=== PATIENT | male | born 1990 | race Caucasian/White ===

== ENCOUNTER 2018-07-04 08:34 | Emergency (ER) | payer OTHER ==
[~2018-07-04] VITALS: Ht 180.3 cm; Wt 83.9 kg
--- NOTE | 2018-07-04 09:53 | ER.PDOC ---
General Chief Complaint: Requesting Medical Care Stated Complaint: BACK INJURY Time seen by MD: 09:46 Source: patient Exam Limitations: no limitations History of Present Illness Initial Comments 28 Y/O MALE WITH HX BENT OVER TO [employer] A TRAILER X 6 DAYS AGO AND FELT PULL IN LOW BACK, NOW WITH CONTINUED BACK PAIN, NO LOSS OF BOWEL OR BLADDER CONTROL, HAS BEEN USING HEAT. SAME PAST BACK STRAIN. Occurred: last week Where: work Severity: moderate Injuries/Pain Location: back Loss of Consciousness: No Loss of Consciousness Modifying Factors: improves with immobilization, improves with rest Associated Symptoms: denies symptoms Past Medical History Medical History: no pertinent history Family History Significant Family History: no pertinent family hx Social History Alcohol Use: occassionally Drug Use: none Reviewed Nursing Reviewed: Vital Signs, Abn. Noted, Nursing Assessment Review of Systems Constitutional: see HPI Eyes: no symptoms reported Ears, Nose, Mouth, Throat: no symptoms reported Respiratory: no symptoms reported Cardiovascular: no symptoms reported Gastrointestinal: no symptoms reported Genitourinary: no symptoms reported Musculoskeletal: back pain Skin: no symptoms reported Psychiatric/Neurological: no symptoms reported All Other Systems: Reviewed and Negative Physical Exam General Appearance: Mild Distress Head: No Evidence of Injury Ears, Nose, Mouth, Throat: Hearing Grossly Normal Back: Decreased Range Of Motion, Muscle Spasm, Vertebral Tenderness Extremities: No Evidence of Injury, Normal Range of Motion, Non-Tender, No Pedal Edema 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 NML as Tested, No Motor/Sensory Deficits, Alert, Normal Mood/Affect, Oriented x 3 Skin: Normal Color, Warm/Dry Faustina Coma Score Best Eye Response: (4) Open Spontaneously Best Verbal Response: (5) Oriented Best Motor Response: (6) Obeys Commands [place] Total: 15 Departure Time of Disposition: 09:54 Disposition: 01 HOME, SELF-CARE Impression: Primary Impression: Back strain Additional Impression: Back pain Condition: Stable Patient Instructions: Back Pain, Adult Referrals: PCP,UNKNOWN (PCP) PRIMARY CARE PROVIDER Comments To ED if no better or worse, ice x 5-7 days, follow up with work comp Dr if no better, Rx flexeril, prednisone, motrin 600 mg. Duration or Time Spent with Pa: 30 MIN Problem Qualifiers CIRILO GARCIA DO Jul 04, 2018 09:53
[2018-07-04] MEDS ORDERED: TORADOL IM STA (10:05)
[2018-07-04] MEDS ORDERED: PREDNISONE PO STA (10:05)
[2018-07-04 10:09] VITALS: BP 142/83
[2018-07-04] MEDS ORDERED: TORADOL ONE (10:15)
[2018-07-04] MEDS ORDERED: PREDNISONE ONE (10:15)
[2018-07-04 10:28] VITALS: BP 142/83
== END 2018-07-04 10:44 | disposition home or self-care (01) ==
LOC: ER 08:34
DX: S39.012A Strain of muscle, fascia and tendon of lower back, initial encounter (principal); X50.9XXA Other and unspecified overexertion or strenuous movements or postures, initial encounter; Y93.89 Activity, other specified; Y92.89 Other specified places as the place of occurrence of the external cause; Y99.8 Other external cause status
CPT/HCPCS: 96372; 99283; J1885; J7512